=== PATIENT | male | born 1975 | race Hispanic/Latino ===

== ENCOUNTER → 2024-03-24 | Emergency (ER) | payer OTHER ==
[~2024-03-24] MED LIST: levETIRAcetam 500 MG (5 mL) VIAL ONE
== END ==
LOC: EEVIPCON 20:55 → ERS 20:55
DX: G40.909 Epilepsy, unspecified, not intractable, without status epilepticus (principal); I10 Essential (primary) hypertension
CPT/HCPCS: 96365; J1953